=== PATIENT | female | born 1945 | race Caucasian/White ===

== ENCOUNTER 2017-10-27 12:54 | Outpatient (CLI) | payer MEDICARE | END 2017-10-27 12:55 | disposition home or self-care (01) | LOC: BICMAMMO 12:54 | PROVIDERS: ATTEND Internal Medicine | DX: Z12.31 Encounter for screening mammogram for malignant neoplasm of breast (principal); Z80.3 Family history of malignant neoplasm of breast | CPT/HCPCS: 77063; 77067 ==

== ENCOUNTER 2018-01-06 10:26 | Inpatient (IN) | payer MEDICARE ==
[2018-01-06 11:10] LABS: Hemoglobin 12.5 g/dL (12.0-16.0); Mean Corpuscular HGB CONC 33.2 g/dL (32.0-36.0); Mean Corpuscular Hemoglobin 27.8 pg (27.0-31.0); Mean Corpuscular Volume 83.6 fL (78.0-98.0); Mean Platelet Volume 12.4 fL (7.4-10.4); Platelet Count 161 thou/uL (130-400); RBC Distribution Width 12.7 % (11.5-14.5); White Blood Cell (WBC) Count 13.1 thou/uL (4.8-10.8)
[2018-01-06 11:25] LABS: #Basophils 0.1 thou/uL (0.0-0.2); #Eosinphils 0.4 thou/uL (0.0-0.7); #Lymphocytes 1.1 thou/uL (1.20-3.40); #Monocytes 0.7 thou/uL (0.11-0.59); #Neutrophils 10.8 thou/uL (1.40-6.50); %Basophils 0.6 % (0.0-1.0); %Eosinophils 3.4 % (0.0-10.0); %Lymphocytes 8.5 % (21.0-51.0); %Monocytes 5.5 % (0.0-10.0); %Neutrophils 82.1 % (42.0-75.0); MDiff Complete? YES; PLT Morphology Comment Appears Adequate; RBC Morphology Normal
[2018-01-06 11:35] LABS: ALT (SGPT) 21 U/L (8-55); AST (SGOT) 20 U/L (5-34); Albumin 4.1 g/dL (3.4-4.8); Alkaline Phosphatase 106 U/L (40-150); Anion Gap 15 mmol/L (10-20); BUN (Urea Nitrogen) 15 mg/dL (9.8-20.1); Bilirubin, Total 0.7 mg/dL (0.2-1.2); Calc. Creatinine Clearance 0 mL/min (70-130); Calcium 9.7 mg/dL (7.8-10.44); Carbon Dioxide 28 mmol/L (23-31); Chloride 98 mmol/L (98-107); Estimated GFR-MDRD 62; Globulin 2.3 g/dL (2.4-3.5); Glucose 221 mg/dL (83-110); Potassium 4.1 mmol/L (3.5-5.1); Protein, Total 6.4 g/dL (6.0-8.3); Sodium 137 mmol/L (136-145)
[2018-01-06 11:39] LABS: CKMB 0.3 ng/mL (0-6.6); Troponin I Less than 0.010 ng/mL (< 0.028)
[2018-01-06] MEDS ORDERED: Levofloxacin 500 mg/D5W 100 ml Premix Bag ONE (12:05)
--- NOTE | 2018-01-06 13:00 | RAD ---
PA AND LATERAL CHEST XRAY: DATE: 01/06/18. HISTORY: Cough for 3-4 days. The patient is on antibiotic for UTI. COMPARISON: 09/28/10. FINDINGS: There are interstitial and patchy parenchymal changes at the left lung base, probably in the region o f the left lower lobe which may be related to a developing pneumonia. Cardiac silhouette and pulmona ry vasculature are within normal limits. Right lung appears clear. Surgical clips overlie the right upper quadrant. Vascular calcifications are seen in the thoracic as well as abdominal aorta. Calci fied granuloma at the right lung base is again present. Elevation of right hemidiaphragm is also aga in present. No other interval change. IMPRESSION: Developing pneumonia left lower lobe. Followup to complete resolution is recommended. POS: MADDISON
[2018-01-06] MEDS ORDERED: Guaifenesin DM 100-10/5 ML UDCUP PO PRN (14:23)
[2018-01-06] MEDS ORDERED: Acetaminophen 325 MG TAB PO PRN (14:23)
[2018-01-06] MEDS ORDERED: Ondansetron ODT 4 MG TAB PO PRN (14:23)
[2018-01-06] MEDS ORDERED: Ondansetron HCl/PF 4 MG/2 ML Vial IVP PRN (14:23)
[2018-01-06] MEDS ORDERED: HumaLOG 300 UNITS/3 ML VIAL SC PRN (14:25)
[2018-01-06] MEDS ORDERED: Dextrose 5% in Water 1,000 ML IV PRN (14:25)
[2018-01-06] MEDS ORDERED: Dextrose 50% Abboject 50 ML SYRINGE SLOW IVP PRN (14:25)
[2018-01-06] MEDS ORDERED: hydrALAZINE 20 MG/ML VIAL SLOW IVP PRN (14:26)
[2018-01-06] MEDS ORDERED: predniSONE 20 MG TAB PO SCH (14:30)
[2018-01-06 14:37] VITALS: BMI 27.3
[2018-01-06] MEDS: Heparin 5,000 UNITS/ML VIAL SC SCH ×2 (15:52→21:58)
[2018-01-06] MEDS: Sodium Chloride 0.9% 1,000 ML IV SCH (15:52)
[2018-01-06] MEDS ORDERED: Artificial Tears 18 DROP/0.9 ML EA EYE PRN (16:07)
[2018-01-06] MEDS ORDERED: Albuterol Sulfate 2.5 mg/3 ml Neb NEB PRN (16:25)
--- NOTE | 2018-01-06 17:02 | HP ---
PRESENTING COMPLAINT: Cough. HISTORY OF PRESENT ILLNESS: Ms. Victorina Randhawa is a 72-year-old female who has a 3-day history of cough , fever or chills. It was associated with chest pain while she coughs, which she describes as pleuri tic 5/10 with no clear aggravating or relieving factors. She also has a history of depression, hyper tension, type 2 diabetes mellitus and urinary incontinence. She has been on treatment with [facility] in for the past 9 days for urinary tract infection. She presented to the [facility] Room and she was found to have oxygen saturation in 86%. She was immediately started on 2 liter s of nasal cannula oxygen, IV levofloxacin after her chest x-ray showed left lower lobe pneumonia. S he also had some leukocytosis as well. She was then sent to [facility] for continued manage ment. PAST MEDICAL HISTORY: As stated in the HPI. PAST SURGICAL HISTORY: Reviewed and noncontributory. FAMILY HISTORY: Reviewed and noncontributory. SOCIAL HISTORY: Does not drink alcohol, smoke cigarettes or use illicit drugs. ALLERGIES: PENICILLIN. CODE STATUS: FULL CODE. MEDICATIONS TAKEN AT HOME: Reviewed and entered into the chart. REVIEW OF SYSTEMS: All systems reviewed and negative except as stated in HPI. PHYSICAL EXAMINATION: VITAL SIGNS: Temperature 98.4 degrees Fahrenheit, pulse rate 72, respiratory rate 18, oxygen saturat ion 99% on nasal cannula oxygen and blood pressure 148/76. GENERAL: Not in acute distress, looks slightly lethargic, lying in bed. HEENT: Normocephalic, atraumatic. Not pale, anicteric. Moist mucous membranes. NECK: Supple, full range of movement. JVD absent. RESPIRATORY: Reduced breath sounds bilaterally with bilateral basal crackles. CARDIOVASCULAR: S1 and S2 only. Regular rate and rhythm. No murmurs, rubs or gallops. ABDOMEN: Soft, nontender, nondistended. Bowel sounds normoactive. No hepatosplenomegaly. EXTREMITIES: No edema. SKIN: Warm, dry, and well-perfused. No rashes or lesions. PSYCHIATRIC: Normal mood and affect. NEUROLOGIC: Alert and well oriented to time, place and person. No focal deficits. LABORATORY DATA AND IMAGING DATA: WBC is significant for leukocytosis of 13,000. Serum chemistry al so largely unremarkable apart from glucose of 221 and lactic acid was 1.1. Initial troponin less romeo n 0.010. Chest x-ray shows left lower lobe consolidation. EKG showed no signs of acute ischemia. ASSESSMENT AND PLAN: 1. Acute hypoxic respiratory failure. 2. Left lower lobe pneumonia (community-acquired pneumonia). 3. Hypertension. 4. Type 2 diabetes mellitus with hyperglycemia. 5. Depression. Patient presented with fever, chills, cough, and hypoxia. CBC showed leukocytosis a nd chest x-ray showed left lower lobe pneumonia. She has been started on IV fluoroquinolone. We gordy l also admit to the medical floor and place her on nebulizer therapy, scheduled on p.r.n., daily pred nisone as well as IV levofloxacin. We will monitor her vital signs closely and wean her off oxygen s upplementation. For her diabetes mellitus, we will restart her home medications once they have been confirmed. We will also place on sliding scale insulin, fingerstick glucose before meals and at bedt guera, diabetic diet and hypoglycemia protocol. 6. I will also monitor blood pressure closely and to restart home medications once they have been co nfirmed. 7. CODE STATUS: FULL CODE. 8. Deep venous thrombosis prophylaxis with subcutaneous heparin.
[2018-01-06] MEDS: HumaLOG 300 UNITS/3 ML VIAL SC PRN (17:33)
[2018-01-06] MEDS: Albuterol Sulfate 2.5 mg/3 ml Neb NEB SCH (18:30)
[2018-01-06] MEDS: Primidone 50 MG TAB PO SCH (21:57)
[2018-01-06] MEDS: Famotidine 20 MG TAB PO SCH (21:57)
[2018-01-07] MEDS: Albuterol Sulfate 2.5 mg/3 ml Neb NEB SCH ×4 (00:18→18:45)
[2018-01-07 04:49] LABS: #Eosinphils 0.1 thou/uL (0.0-0.7); #Lymphocytes 1.1 thou/uL (1.20-3.40); #Monocytes 0.2 thou/uL (0.11-0.59); #Neutrophils 6.9 thou/uL (1.40-6.50); %Basophils 0.4 % (0.0-1.0); %Eosinophils 0.9 % (0.0-10.0); %Lymphocytes 13.5 % (21.0-51.0); %Neutrophils 83.1 % (42.0-75.0); Hemoglobin 12.2 g/dL (12.0-16.0); Mean Corpuscular HGB CONC 32.9 g/dL (32.0-36.0); Mean Corpuscular Hemoglobin 28.9 pg (27.0-31.0); Mean Corpuscular Volume 87.8 fL (78.0-98.0); Platelet Count 163 thou/uL (130-400); Red Blood Cell (RBC) Count 4.23 mill/uL (4.20-5.40); White Blood Cell (WBC) Count 8.4 thou/uL (4.8-10.8)
[2018-01-07 04:54] LABS: Hemoglobin A1c 6.7 % (4.0-6.0)
[2018-01-07 04:58] LABS: Anion Gap 14 mmol/L (10-20); BUN (Urea Nitrogen) 13 mg/dL (9.8-20.1); Calc. Creatinine Clearance 63 mL/min (70-130); Calcium 9.9 mg/dL (7.8-10.44); Carbon Dioxide 26 mmol/L (23-31); Chloride 104 mmol/L (98-107); Estimated GFR-MDRD 69; Glucose 249 mg/dL (83-110); Potassium 3.9 mmol/L (3.5-5.1); Sodium 140 mmol/L (136-145)
[2018-01-07] MEDS: Sodium Chloride 0.9% 1,000 ML IV SCH ×2 (06:34→16:16)
[2018-01-07] MEDS: HumaLOG 300 UNITS/3 ML VIAL SC PRN ×2 (06:48→17:46)
[2018-01-07] MEDS: Famotidine 20 MG TAB PO SCH ×2 (08:42→22:02)
[2018-01-07] MEDS: Simvastatin 5 MG TAB PO SCH (08:42)
[2018-01-07] MEDS: Primidone 50 MG TAB PO SCH ×3 (08:42→22:02)
[2018-01-07] MEDS: FLUoxetine HCl 20 MG CAP PO SCH (08:43)
[2018-01-07] MEDS: metFORMIN 500 MG TAB PO SCH (08:43)
[2018-01-07] MEDS: Lisinopril 20 MG TAB PO SCH (08:43)
[2018-01-07] MEDS: predniSONE 20 MG TAB PO SCH (08:43)
[2018-01-07] MEDS: Heparin 5,000 UNITS/ML VIAL SC SCH ×3 (08:44→22:02)
[2018-01-07] MEDS ORDERED: traMADol HCl 50 MG TAB PO PRN (11:12)
--- NOTE | 2018-01-07 11:14 | PDOC.PN ---
- Subjective Encounter Start Date: 01/07/18 Encounter Start Time: 11:13 72 F p/w SOB, cough and O2 sat in the mid 80s. Admitted for respiratory failure and LLL PNA. No complaints today. No acute events overnight. - Objective Resuscitation Status: Resuscitation Status FULL:Full Resuscitation MAR Reviewed: Yes Vital Signs & Weight: Vital Signs (12 hours) Temp Pulse Resp BP BP Pulse Ox 01/07/18 08:43 156/75 H 01/07/18 08:00 98.2 F 87 16 93 L 01/07/18 07:37 98.2 F 87 16 156/75 H 93 L 01/07/18 06:53 94 L 01/07/18 06:51 83 16 94 L 01/07/18 02:45 93 L 01/07/18 00:18 81 12 Result Diagrams: 01/07/18 03:51 01/07/18 03:51 Additional Labs: Accuchecks 01/07/18 01/06/18 06:42 17:00 POC Glucose 233 H 172 H Phys Exam - Physical Examination Constitutional: NAD HEENT: moist MMs, sclera anicteric Neck: no JVD, supple, full ROM Respiratory: no wheezing, clear to auscultation bilateral crackles b/l lower lobes Cardiovascular: RRR, no significant murmur, no rub Gastrointestinal: soft, non-tender, no distention, positive bowel sounds Musculoskeletal: no edema, pulses present Neurological: non-focal, moves all 4 limbs Psychiatric: normal affect, A&O x 3 Dx/Plan (1) Acute respiratory failure with hypoxia Code(s): J96.01 - ACUTE RESPIRATORY FAILURE WITH HYPOXIA Status: Acute Comment: Still requiring NC O2. Will wean off. Encourage incentive spirometry. (2) Pneumonia Code(s): J18.9 - PNEUMONIA, UNSPECIFIED ORGANISM Status: Acute Qualifiers: Pneumonia type: due to unspecified organism Laterality: left Lung location: lower lobe of lung Qualified Code(s): J18.1 - Lobar pneumonia, unspecified organism Comment: Improving with antibiotics, nebs and steroids. Will wean off O2. (3) Depression Code(s): F32.9 - MAJOR DEPRESSIVE DISORDER, SINGLE EPISODE, UNSPECIFIED Status : Chronic Qualifiers: Depression Type: unspecified Qualified Code(s): F32.9 - Major depressive disorder, single episode, unspecified (4) DM2 (diabetes mellitus, type 2) Status: Chronic Qualifiers: Diabetes mellitus long term care administrator insulin use: without long term care administrator use Diabetes mellitus complication status: without complication Qualified Code(s): E11.9 - Type 2 diabetes mellitus without complications Comment: Stable. Fair control. Continue current treatment regimen. (5) HTN (hypertension) Code(s): I10 - ESSENTIAL (PRIMARY) HYPERTENSION Status: Chronic Qualifiers: Hypertension type: essential hypertension Qualified Code(s): I10 - Essential (primary) hypertension Comment: Fair control. Continue home meds. - Plan cont current plan of care, continue antibiotics, out of bed/ambulate, DVT proph w/heparin * . Review of Systems - Medications/Allergies Allergies/Adverse Reactions: Allergies Allergy/AdvReac Type Severity Reaction Status Date / Time Penicillins Allergy Verified 01/06/18 14:49 Medications: Current Medications Acetaminophen (Tylenol) 650 mg PO Q4H PRN PRN Reason: Headache/Fever or Pain Albuterol Sulfate (Ventolin) 2.5 mg NEB [id number] [facility] Last Admin: 01/07/18 06:51 Dose: 2.5 mg Artificial Tears (Tears Naturale) 2 drop EA EYE PRN PRN PRN Reason: Dry Eyes Dextrose/Water (Dextrose 50%) 25 gm SLOW IVP PRN PRN PRN Reason: Hypoglycemia Diltiazem HCl (Cardizem) 30 mg PO TID [facility] Last Admin: 01/07/18 08:44 Dose: 30 mg Famotidine (Pepcid) 20 mg PO BID [facility] Last Admin: 01/07/18 08:42 Dose: 20 mg Fluoxetine HCl (Prozac) 40 mg PO DAILY [facility] Last Admin: 01/07/18 08:43 Dose: 40 mg Glucagon (Glucagon) 1 mg IM PRN PRN PRN Reason: Hypoglycemia Guaifenesin/Dextromethorphan (Robitussin Dm) 15 ml PO Q4H PRN PRN Reason: Cough Heparin Sodium (Porcine) (Heparin) 5,000 units SC TID [facility] Last Admin: 01/07/18 08:44 Dose: 5,000 units Hydralazine HCl (Apresoline) 10 mg SLOW IVP Q4H PRN PRN Reason: SBP > 180 Levofloxacin 500 mg/ Device 100 mls @ 100 mls/hr IVPB 1200 [facility] Sodium Chloride (Normal Saline 0.9%) 1,000 mls @ 75 mls/hr IV .[id number] [facility] Last Admin: 01/07/18 06:34 Dose: 1,000 mls Dextrose/Water (D5w) 1,000 mls @ 0 mls/hr IV .Q0M PRN; As Directed PRN Reason: Hypoglycemia Insulin Human Lispro (Humalog) 0 units SC .MILD SLIDING SCALE PRN PRN Reason: Mild Correctional Scale Last Admin: 01/07/18 06:48 Dose: 3 unit Insulin Human Lispro (Humalog) 0 units SC .BEDTIME SLIDING SC PRN PRN Reason: Bedtime Correctional Scale Lisinopril (Zestril) 40 mg PO DAILY [facility] Last Admin: 01/07/18 08:43 Dose: 40 mg Metformin HCl (Glucophage) 500 mg PO [facility] Last Admin: 01/07/18 08:43 Dose: 500 mg Mirabegron (Myrbetriq Er) 25 mg PO DAILY [facility] Last Admin: 01/07/18 09:54 Dose: 25 mg Ondansetron HCl (Zofran Odt) 4 mg PO Q6H PRN PRN Reason: Nausea/Vomiting Ondansetron HCl (Zofran) 4 mg IVP Q6H PRN PRN Reason: Nausea/Vomiting Prednisone (Prednisone) 40 mg PO [facility] Last Admin: 01/07/18 08:43 Dose: 40 mg Primidone (Mysoline) 50 mg PO TID [facility] Last Admin: 01/07/18 08:42 Dose: 50 mg Simvastatin (Zocor) 10 mg PO DAILY [facility] Last Admin: 01/07/18 08:42 Dose: 10 mg
[2018-01-08] MEDS: Albuterol Sulfate 2.5 mg/3 ml Neb NEB SCH ×2 (00:43→06:54)
[2018-01-08 04:54] LABS: Anion Gap 14 mmol/L (10-20); BUN (Urea Nitrogen) 13 mg/dL (9.8-20.1); Calc. Creatinine Clearance 68 mL/min (70-130); Calcium 9.7 mg/dL (7.8-10.44); Carbon Dioxide 26 mmol/L (23-31); Chloride 106 mmol/L (98-107); Estimated GFR-MDRD 76; Glucose 165 mg/dL (83-110); Potassium 4.6 mmol/L (3.5-5.1); Sodium 141 mmol/L (136-145)
[2018-01-08 05:14] LABS: Band 7 % (5-11); Hemoglobin 11.4 g/dL (12.0-16.0); Lymphocytes 25 % (21-51); MDiff Complete? YES; Mean Corpuscular HGB CONC 33.6 g/dL (32.0-36.0); Mean Corpuscular Hemoglobin 29.7 pg (27.0-31.0); Mean Corpuscular Volume 88.3 fL (78.0-98.0); Monocytes 5 % (0-10); Neutrophil 63 % (42-75); PLT Morphology Comment Appears Adequate; Platelet Count 155 thou/uL (130-400); RBC Distribution Width 13.1 % (11.5-14.5); Red Blood Cell (RBC) Count 3.84 mill/uL (4.20-5.40); White Blood Cell (WBC) Count 11.6 thou/uL (4.8-10.8)
[2018-01-08] MEDS: FLUoxetine HCl 20 MG CAP PO SCH (08:51)
[2018-01-08] MEDS: predniSONE 20 MG TAB PO SCH (08:51)
[2018-01-08] MEDS: metFORMIN 500 MG TAB PO SCH (08:51)
[2018-01-08] MEDS: Famotidine 20 MG TAB PO SCH (08:51)
[2018-01-08] MEDS: Lisinopril 20 MG TAB PO SCH (08:52)
[2018-01-08] MEDS: Primidone 50 MG TAB PO SCH (08:52)
[2018-01-08] MEDS: Simvastatin 5 MG TAB PO SCH (08:52)
[2018-01-08] MEDS: Heparin 5,000 UNITS/ML VIAL SC SCH (08:53)
[2018-01-08 11:49] VITALS: BP 136/63; TEMP 98.1
--- NOTE | 2018-01-08 12:04 | RAD ---
PORTABLE CHEST: Date: 01/08/18 INDICATION: Pneumonia and hypoxia. COMPARISON: 01/06/18. FINDINGS: Previous exam revealed left lower lobe infiltrate. On today's exam, there is suggestion of possible residual left lower lobe infiltrate or atelectasis. This is poorly evaluated on this portable projection. Lungs are otherwise clear. Heart size mildly pr ominent, but stable. Vascular markings upper normal and stable. IMPRESSION: I cannot exclude mild residual infiltrate or atelectasis in the left lung base. POS: MADDISON
[2018-01-08] MEDS: Sodium Chloride 0.9% 1,000 ML IV SCH (12:29)
== END 2018-01-08 13:17 | disposition home or self-care (01) | DRG 193 ==
LOC: SCSER 10:26 → T4-A 14:16
PROVIDERS: ADMIT Internal Medicine; ATTEND Internal Medicine
DX: J18.9 Pneumonia, unspecified organism (principal); J96.01 Acute respiratory failure with hypoxia; F32.9 Major depressive disorder, single episode, unspecified; E11.65 Type 2 diabetes mellitus with hyperglycemia; I10 Essential (primary) hypertension
CPT/HCPCS: 36415; 36416; 71045; 71046; 80048; 80053; 82553; 83036; 83605; 83880; 84484; 85025; 87040; 93005; 94640; 96365; J1644; J1956; J7506; J7611

== ENCOUNTER 2018-02-01 13:17 | Outpatient (CLI) | payer MEDICARE | END 2018-02-01 13:18 | disposition home or self-care (01) | LOC: BICRAD 13:17 | PROVIDERS: ATTEND Internal Medicine | DX: J18.9 Pneumonia, unspecified organism (principal); I70.90 Unspecified atherosclerosis | CPT/HCPCS: 71046 ==

== ENCOUNTER 2018-06-24 15:48 | Outpatient (CLI) | payer MEDICARE ==
--- NOTE | 2018-06-24 16:04 | RAD ---
TWO VIEWS CHEST: Date: 06-24-18 Comparison: 01-06-18 History: Cough. FINDINGS: There is increased linear interstitial densities with pulmonary hyperinflation, stable, suggesting C OPD. Clips in right upper quadrant suggest prior cholecystectomy. No pneumothorax, pleural fluid, foc al consolidation or alveolar edema. IMPRESSION: Stable chronic findings as detailed above. POS: YANDEL
== END 2018-06-24 15:49 | disposition home or self-care (01) ==
LOC: BICRAD 15:48
PROVIDERS: ATTEND Internal Medicine
DX: R06.00 Dyspnea, unspecified (principal); R05 Cough; R91.8 Other nonspecific abnormal finding of lung field; Z90.49 Acquired absence of other specified parts of digestive tract
CPT/HCPCS: 71046

== ENCOUNTER 2018-11-08 13:10 | Outpatient (CLI) | payer MEDICARE ==
--- NOTE | 2018-11-08 14:03 | MMO ---
Bilateral MAMMO Bilat Screen [facility]. CLINICAL HISTORY: Patient is 73 years old and is seen for screening. The patient has the following family history of breast cancer: sister, at age 40; sister, at age 60, malignant (generic) and maternal grandmother. The patient has no personal history of cancer. VIEWS: The views performed were: bilateral craniocaudal with tomosynthesis and bilateral mediolateral oblique with tomosynthesis. FILMS COMPARED: The present examination has been compared to prior imaging studies performed at [facility] on 09/05/2013, 10/06/2014, 10/08/2015, 10/15/2016 and 10/27/2017. MAMMOGRAM FINDINGS: The breasts are heterogeneously dense, which could obscure a lesion on mammography. There are no suspicious masses, suspicious calcifications, or new areas of architectural distortion. IMPRESSION: THERE IS NO MAMMOGRAPHIC EVIDENCE OF MALIGNANCY. A ROUTINE FOLLOW-UP MAMMOGRAM IN 1 YEAR IS RECOMMENDED. THE RESULTS OF THIS EXAM WERE SENT TO THE PATIENT. ACR BI-RADS Category 1 - Negative MAMMOGRAPHY NOTE: 1. A negative mammogram report should not delay a biopsy if a dominant of clinically suspicious mass is present. 2. Approximately 10% to 15% of breast cancers are not detected by mammography. 3. Adenosis and dense breasts may obscure an underlying neoplasm.
== END 2018-11-08 13:11 | disposition home or self-care (01) ==
LOC: BICMAMMO 13:10
PROVIDERS: ATTEND Internal Medicine
DX: Z12.31 Encounter for screening mammogram for malignant neoplasm of breast (principal); Z80.3 Family history of malignant neoplasm of breast
CPT/HCPCS: 77063; 77067

== ENCOUNTER 2018-11-22 13:55 | Outpatient (CLI) | payer MEDICARE ==
--- NOTE | 2018-11-22 15:01 | CT ---
CT ABDOMEN AND PELVIS WITHOUT CONTRAST: Date: 11/22/18 PROVIDED CLINICAL HISTORY: UTI, pelvic pain. FINDINGS: Comparison with 12/19/15. The visualized lung bases are free of significant opacity. The solid abdominal organs are suboptimally evaluated in the absence of IV contrast but demonstrate a n unremarkable unenhanced CT appearance. There is no evidence for urinary tract calculi or hydronephr osis. No bowel dilatation, inflammatory fat stranding, free fluid, or lymph node enlargement apparent. Mode rate colonic fecal retention. Atherosclerosis. Post cholecystectomy change. The osseous structures demonstrate no concerning lytic or blastic lesions. Degenerative changes are n oted involving the lumbar spine. IMPRESSION: No evidence for urinary tract calculi or hydronephrosis. POS: C
== END 2018-11-22 13:56 | disposition home or self-care (01) ==
LOC: SCSCT 13:55
PROVIDERS: ATTEND Urology
DX: N39.0 Urinary tract infection, site not specified (principal)
CPT/HCPCS: 74176

== ENCOUNTER 2022-02-20 10:22 | Outpatient (CLI) | payer MEDICARE | END 2022-02-20 10:23 | disposition home or self-care (01) | LOC: NM 10:22 | PROVIDERS: ATTEND Psychiatry & Neurology Neurology | DX: R25.1 Tremor, unspecified (principal) | CPT/HCPCS: 78803; A9584 ==